=== PATIENT | male | born 1955 | race African-American/Black ===

== ENCOUNTER → 2016-02-09 | Outpatient (CLI) | payer MEDICARE, MEDICAID | LOC: RAD 09:39 | DX: D49.7 Neoplasm of unspecified behavior of endocrine glands and other parts of nervous system (principal) | CPT/HCPCS: 70553; A9577 ==

== ENCOUNTER → 2016-02-09 | Outpatient (CLI) | payer MEDICARE, MEDICAID ==
[2016-02-09 08:27] LABS: CHOLESTEROL 145.56 mg/dL (0-200); Direct HDL 37 mg/dL (>40); TRIGLYCERIDES 79 mg/dL (<150)
[2016-02-09 08:38] LABS: DIRECT LDL 84 mg/dL (<100)
== END ==
LOC: OD 07:24
DX: I10 Essential (primary) hypertension (principal); E78.5 Hyperlipidemia, unspecified; D49.7 Neoplasm of unspecified behavior of endocrine glands and other parts of nervous system; J44.9 Chronic obstructive pulmonary disease, unspecified; R35.8 Other polyuria
CPT/HCPCS: 36415; 80061

== ENCOUNTER → 2016-03-09 | Outpatient (CLI) | payer MEDICAID ==
[2016-03-09 11:00] LABS: APPEARANCE,URINE SLIGHTLY-CLOUDY; BILIRUBIN,URINE NEGATIVE (NEGATIVE); GLUCOSE, URINE NEGATIVE (NEGATIVE); KETONES,URINE NEGATIVE (NEGATIVE); LEUKOCYTE ESTERASE,URINE LARGE (NEGATIVE); NITRITE,URINE NEGATIVE (NEGATIVE); PROTEIN,URINE NEGATIVE (NEGATIVE); URINE SPECIFIC GRAVITY 1.011; UROBILINOGEN,URINE NEGATIVE mg/dL (<2.0)
[2016-03-09 12:20] LABS: FOLATE > 20.00 ng/mL (>2.76)
[2016-03-11 12:38] LABS: HGB A 56.7 % (94.0-98.0); HGB A2 3.9 % (0.7-3.1); HGB S 39.4 % (0.0); HGB SOLUBILITY RESULT Positive (Negative)
== END ==
LOC: OD 09:36
DX: Z13.0 Encounter for screening for diseases of the blood and blood-forming organs and certain disorders involving the immune mechanism (principal); Z13.228 Encounter for screening for other metabolic disorders; D49.7 Neoplasm of unspecified behavior of endocrine glands and other parts of nervous system; Z79.899 Other long term (current) drug therapy; G40.909 Epilepsy, unspecified, not intractable, without status epilepticus
CPT/HCPCS: 36415; 81001; 82607; 82728; 82746; 83020; 83036; 83540; 83550; 84153; 85045; 85652; 86038; 86592

== ENCOUNTER → 2016-03-15 | Outpatient (CLI) | payer MEDICARE, MEDICAID ==
--- NOTE | 2016-03-16 07:53 | EEG PRO FEE REPORT ---
EEG INTERPRETATION PATIENT NAME: LUIS PETERSON ROOM#: ORDER#: [id number] DATE OF STUDY: 03/15/16 : 1955 REFERRING MD: DR. CIFUENTES REPORT The background activity consists for the most part of 8-10 Hz alpha with a lot of superimposed motion artifact. No clear focal slowing, amplitude asymmetry, or epileptiform discharges are noted. IMPRESSION Normal EEG INTERPRETING PHYSICIAN: JOHNY CONTRERAS M.D. /: ADILENEUD TT: [id number] ID: [id number] /: [id number] TD: [id number] JOB: [id number] cc:JOHNY CONTRERAS M.D. >
== END ==
LOC: NEURO 12:39
DX: G40.909 Epilepsy, unspecified, not intractable, without status epilepticus (principal)
CPT/HCPCS: 95819

== ENCOUNTER → 2016-04-28 | Outpatient (CLI) | payer MEDICARE, MEDICAID ==
[2016-04-30 12:23] LABS: PROSTATE SPECIFIC ANTIGEN 4.6 ng/mL (0.0-4.0); PSA % FREE 7.4 % (.); PSA FREE 0.34 ng/mL
== END ==
LOC: OD 13:06
PROVIDERS: ATTEND Urology
DX: R97.20 Elevated prostate specific antigen [PSA] (principal); N40.1 Benign prostatic hyperplasia with lower urinary tract symptoms
CPT/HCPCS: 36415; 84154

== ENCOUNTER → 2016-07-29 | Outpatient (CLI) | payer MEDICARE, MEDICAID ==
[2016-07-29 10:16] LABS: ABSOLUTE EOSINOPHILS # (AUTO) 0.1 10^3/uL (0.0-0.6); ABSOLUTE LYMPHOCYTES (AUTO) 2.5 10^3/uL (0.5-4.7); ABSOLUTE MONOCYTES (AUTO) 0.5 10^3/uL (0.1-1.4); ABSOLUTE NEUT (AUTO) 3.1 10^3/uL (1.7-8.2); BASOPHILS % (AUTO) 0.7 % (0-2); EOSINOPHILS % (AUTO) 2.4 % (0-6); HEMATOCRIT 36.7 % (37.9-51.0); HGB HCT DIFFERENCE -0.7; LYMPHOCYTES % (AUTO) 39.9 % (13-45); MEAN CORPUSCULAR HEMOGLOBIN 29.4 pg (27.0-33.4); MEAN CORPUSCULAR HGB CONC 32.8 g/dL (32.0-36.0); MEAN CORPUSCULAR VOLUME 90 fl (80-97); MONOCYTES % (AUTO) 7.4 % (3-13); RED BLOOD COUNT 4.09 10^6/uL (4.35-5.55); RED CELL DISTRIBUTION WIDTH 14.3 % (11.5-14.0); SEGMENTED NEUTROPHILS % (AUTO) 49.6 % (42-78); WHITE BLOOD COUNT 6.3 10^3/uL (4.0-10.5)
[2016-07-29 10:33] LABS: ALANINE AMINOTRANSFERASE 25 U/L (21-72); ALBUMIN 4.3 g/dL (3.5-5.0); ALKALINE PHOSPHATASE 91 U/L (38-126); ANION GAP 10 (5-19); ASPARTATE AMINO TRANSFERASE 29 U/L (17-59); BILIRUBIN,DIRECT 0.3 mg/dL (0.0-0.4); BILIRUBIN,TOTAL 0.4 mg/dL (0.2-1.3); BLOOD UREA NITROGEN 17 mg/dL (7-20); CALCIUM 9.5 mg/dL (8.4-10.2); CARBON DIOXIDE 25 mmol/L (22-30); CHLORIDE 107 mmol/L (98-107); CHOLESTEROL 148.83 mg/dL (0-200); CREATININE RESULT 1.15 mg/dL (0.52-1.25); Direct HDL 46 mg/dL (>40); GLUCOSE 94 mg/dL (75-110); POTASSIUM 4.7 mmol/L (3.6-5.0); TOTAL PROTEIN 8.5 g/dL (6.3-8.2); TRIGLYCERIDES 54 mg/dL (<150)
[2016-07-29 10:43] LABS: DIRECT LDL 80 mg/dL (<100)
== END ==
LOC: OD 09:19
PROVIDERS: ATTEND Family Medicine Geriatric Medicine
DX: I10 Essential (primary) hypertension (principal); E78.5 Hyperlipidemia, unspecified; J44.9 Chronic obstructive pulmonary disease, unspecified; Z79.899 Other long term (current) drug therapy
CPT/HCPCS: 36415; 80053; 80061; 84443; 85025

== ENCOUNTER → 2016-09-22 | Outpatient (CLI) | payer MEDICARE, MEDICAID ==
[2016-09-23 08:11] LABS: PROLACTIN 4.6 ng/mL (4.0-15.2)
== END ==
LOC: OD 12:23
PROVIDERS: ATTEND Specialist
DX: D49.7 Neoplasm of unspecified behavior of endocrine glands and other parts of nervous system (principal)
CPT/HCPCS: 36415; 83003; 84146; 84436; 84443; 84480

== ENCOUNTER → 2016-10-27 | Outpatient (CLI) | payer MEDICARE, MEDICAID ==
[2016-10-28 09:14] LABS: PROSTATE SPECIFIC ANTIGEN 4.2 ng/mL (0.0-4.0); PSA % FREE 6.9 % (.); PSA FREE 0.29 ng/mL
== END ==
LOC: OD 08:23
PROVIDERS: ATTEND Urology
DX: R97.20 Elevated prostate specific antigen [PSA] (principal)
CPT/HCPCS: 36415; 84154

== ENCOUNTER → 2016-10-31 | Outpatient (CLI) | payer MEDICARE, MEDICAID ==
--- NOTE | 2016-10-31 11:14 | RADIOLOGY REPORT (SQ) ---
EXAM DESCRIPTION: C SP 4 OR 5 VIEWS COMPLETED DATE/TIME: 10/31/2016 9:02 am REASON FOR STUDY: CERVICALGIA M54.2 CERVICALGIA COMPARISON: None. NUMBER OF VIEWS: Five views. TECHNIQUE: AP, lateral, obliques and odontoid radiographic images acquired of the cervical spine. LIMITATIONS: None. FINDINGS: MINERALIZATION: Normal. ALIGNMENT: Straightening of cervical curvature. VERTEBRAE: No compression fracture. Bony sclerosis at C5 and C6 likely related to degenerative verte bral body endplate changes. Small to moderate sized anterior osteophytes from C3 through C6. DISCS: Disc space loss of height at C5-6 and C6-7 FORAMINA: Mild bilateral foraminal narrowing at C5-6 and C6-7 LATERAL AND POSTERIOR ELEMENTS: Facets, lateral masses and spinous processes without significant find ings. HARDWARE: None in the spine. SOFT TISSUES: No masses or calcifications. Lung apices clear. OTHER: No other significant finding. IMPRESSION: Degenerative disc changes and mild bilateral foraminal narrowing at C5-6 and C6-7 TECHNICAL DOCUMENTATION: JOB ID: [id number]- All Rights Reserved
== END ==
LOC: OD 08:45
PROVIDERS: ATTEND Family Medicine Geriatric Medicine
DX: M54.2 Cervicalgia (principal); M48.02 Spinal stenosis, cervical region
CPT/HCPCS: 72050

== ENCOUNTER → 2017-02-13 | Outpatient (CLI) | payer MEDICARE, MEDICAID ==
[2017-02-14 09:48] LABS: PROSTATE SPECIFIC ANTIGEN 5.5 ng/mL (0.0-4.0); PSA % FREE 6.5 % (.); PSA FREE 0.36 ng/mL
== END ==
LOC: OD 09:40
PROVIDERS: ATTEND Urology
DX: C61 Malignant neoplasm of prostate (principal)
CPT/HCPCS: 36415; 84154

== ENCOUNTER → 2017-05-15 | Outpatient (CLI) | payer MEDICARE, MEDICAID ==
[2017-05-15 12:46] LABS: ABSOLUTE EOSINOPHILS # (AUTO) 0.1 10^3/uL (0.0-0.6); ABSOLUTE LYMPHOCYTES (AUTO) 2.7 10^3/uL (0.5-4.7); ABSOLUTE MONOCYTES (AUTO) 0.3 10^3/uL (0.1-1.4); ABSOLUTE NEUT (AUTO) 2.4 10^3/uL (1.7-8.2); BASOPHILS % (AUTO) 0.6 % (0-2); EOSINOPHILS % (AUTO) 2.2 % (0-6); HEMATOCRIT 37.7 % (37.9-51.0); HEMOGLOBIN 12.9 g/dL (13.5-17.0); LYMPHOCYTES % (AUTO) 48.3 % (13-45); MEAN CORPUSCULAR HEMOGLOBIN 31.3 pg (27.0-33.4); MEAN CORPUSCULAR HGB CONC 34.1 g/dL (32.0-36.0); MEAN CORPUSCULAR VOLUME 92 fl (80-97); MONOCYTES % (AUTO) 5.7 % (3-13); PLATELET COUNT 210 10^3/uL (150-450); RED BLOOD COUNT 4.12 10^6/uL (4.35-5.55); RED CELL DISTRIBUTION WIDTH 14.8 % (11.5-14.0); SEGMENTED NEUTROPHILS % (AUTO) 43.2 % (42-78); TOTAL CELLS COUNTED % (AUTO) 100 %; WHITE BLOOD COUNT 5.6 10^3/uL (4.0-10.5)
[2017-05-15 13:09] LABS: ALANINE AMINOTRANSFERASE 28 U/L (21-72); ANION GAP 8 (5-19); ASPARTATE AMINO TRANSFERASE 35 U/L (17-59); BLOOD UREA NITROGEN 16 mg/dL (7-20); CALCIUM 9.7 mg/dL (8.4-10.2); CARBON DIOXIDE 29 mmol/L (22-30); CHLORIDE 107 mmol/L (98-107); CHOLESTEROL 152.61 mg/dL (0-200); GLUCOSE 92 mg/dL (75-110); POTASSIUM 4.9 mmol/L (3.6-5.0); SODIUM 144.2 mmol/L (137-145); TRIGLYCERIDES 162 mg/dL (<150)
[2017-05-15 13:20] LABS: DIRECT LDL 72 mg/dL (<100)
[2017-05-15 13:22] LABS: VLDL CHOLESTEROL 32.4 mg/dL (10-31)
[2017-05-16 09:07] LABS: PROSTATE SPECIFIC ANTIGEN 5.1 ng/mL (0.0-4.0); PSA % FREE 7.6 % (.); PSA FREE 0.39 ng/mL
== END ==
LOC: OD 11:32
PROVIDERS: ATTEND Otolaryngology
DX: C61 Malignant neoplasm of prostate (principal); E78.5 Hyperlipidemia, unspecified; J44.9 Chronic obstructive pulmonary disease, unspecified; I10 Essential (primary) hypertension; G40.909 Epilepsy, unspecified, not intractable, without status epilepticus; Z29.9 Encounter for prophylactic measures, unspecified; Z79.899 Other long term (current) drug therapy
CPT/HCPCS: 36415; 80048; 80061; 82785; 84154; 84450; 84460; 85025; 86003

== ENCOUNTER → 2017-08-24 | Outpatient (CLI) | payer MEDICARE, MEDICAID | LOC: OD 10:14 | PROVIDERS: ATTEND Urology | DX: C61 Malignant neoplasm of prostate (principal) | CPT/HCPCS: 36415; 84153 ==

== ENCOUNTER 2018-03-24 09:42 | Inpatient (IN) | payer MEDICARE, MEDICAID ==
[2018-03-24] MEDS ORDERED: ONDANSETRON HCL INJ/PF 4 MG/2 ML SDV IV ONE (10:08)
[2018-03-24] MEDS ORDERED: MORPHINE SULFATE 10 MG/ML INJ IV ONE (10:09)
[2018-03-24] MEDS ORDERED: GABAPENTIN 300 MG CAPSULE PO ONE (10:10)
--- NOTE | 2018-03-24 10:11 | ER Document Report ---
ED Medical Screen (RME) - General Chief Complaint: Headache Stated Complaint: HEADACHE Time Seen by Provider: 03/24/18 10:07 Primary Care Provider: JOSE L HOYT MD [Primary Care Provider] - Follow up as needed Mode of Arrival: Medic Information source: Patient Notes: This is a 62-year-old man with a history of a pituitary mass (diagnosed in 2011, refused surgery at that time) who presents to the emergency room with a 5-day history of headache, weakness. Patient denies any fever, chills, nausea or vomiting. TRAVEL OUTSIDE OF THE [place] IN LAST 30 DAYS: No - Related Data Allergies/Adverse Reactions: No Known Allergies Allergy (Verified 03/24/18 09:43) Past Medical History - Past Medical History Cardiac Medical History: Reports: Hx Hypertension Neurological Medical History: Reports: Hx Migraine Renal/ Medical History: Denies: Hx Peritoneal Dialysis - Immunizations Hx Diphtheria, Pertussis, Tetanus Vaccination: No Physical Exam - Vital signs Vitals: Temp Pulse Resp BP Pulse Ox 97.8 F 70 16 102/56 L 95 03/24/18 09:51 03/24/18 09:51 03/24/18 09:51 03/24/18 09:51 03/24/18 09:51 Course - Vital Signs Vital signs: Temp Pulse Resp BP Pulse Ox 97.8 F 70 16 102/56 L 95 03/24/18 09:51 03/24/18 09:51 03/24/18 09:51 03/24/18 09:51 03/24/18 09:51 Doctor's Discharge - Discharge Referrals: JOSE L HOYT MD [Primary Care Provider] - Follow up as needed
[2018-03-24 10:40] LABS: ABSOLUTE EOSINOPHILS # (AUTO) 0.1 10^3/uL (0.0-0.6); ABSOLUTE LYMPHOCYTES (AUTO) 2.5 10^3/uL (0.5-4.7); ABSOLUTE MONOCYTES (AUTO) 0.7 10^3/uL (0.1-1.4); BASOPHILS % (AUTO) 0.6 % (0-2); EOSINOPHILS % (AUTO) 0.7 % (0-6); HEMATOCRIT 43.2 % (37.9-51.0); HEMOGLOBIN 14.6 g/dL (13.5-17.0); LYMPHOCYTES % (AUTO) 33.9 % (13-45); MEAN CORPUSCULAR HEMOGLOBIN 30.5 pg (27.0-33.4); MEAN CORPUSCULAR HGB CONC 33.8 g/dL (32.0-36.0); MEAN CORPUSCULAR VOLUME 90 fl (80-97); MONOCYTES % (AUTO) 10.1 % (3-13); PLATELET COUNT 176 10^3/uL (150-450); RED BLOOD COUNT 4.79 10^6/uL (4.35-5.55); RED CELL DISTRIBUTION WIDTH 14.1 % (11.5-14.0); SEGMENTED NEUTROPHILS % (AUTO) 54.7 % (42-78); TOTAL CELLS COUNTED % (AUTO) 100 %; WHITE BLOOD COUNT 7.2 10^3/uL (4.0-10.5)
[2018-03-24 10:48] LABS: PROTHROMBIN TIME 13.7 SEC (11.4-15.4)
[2018-03-24 11:00] LABS: ALANINE AMINOTRANSFERASE 29 U/L (21-72); ALBUMIN 4.9 g/dL (3.5-5.0); ALKALINE PHOSPHATASE 86 U/L (38-126); ANION GAP 18 (5-19); ASPARTATE AMINO TRANSFERASE 65 U/L (17-59); BILIRUBIN,DIRECT 0.3 mg/dL (0.0-0.4); BILIRUBIN,TOTAL 0.5 mg/dL (0.2-1.3); BLOOD UREA NITROGEN 69 mg/dL (7-20); CALCIUM 8.7 mg/dL (8.4-10.2); CARBON DIOXIDE 22 mmol/L (22-30); CHLORIDE 97 mmol/L (98-107); GLUCOSE 121 mg/dL (75-110); POTASSIUM 4.3 mmol/L (3.6-5.0); SODIUM 137.2 mmol/L (137-145); TOTAL PROTEIN 9.3 g/dL (6.3-8.2)
--- NOTE | 2018-03-24 11:06 | RADIOLOGY REPORT (SQ) ---
EXAM DESCRIPTION: CT HEAD WITHOUT COMPLETED DATE/TIME: 03/24/2018 10:46 am REASON FOR STUDY: castellon, h/o pituitary mass COMPARISON: CT brain 08/02/2011 MRI brain 02/09/2016 TECHNIQUE: Axial images acquired through the brain without intravenous contrast. Images reviewed wi th bone, brain and subdural windows. Additional sagittal and coronal reconstructions were generated. Images stored on PACS. All CT scanners at this facility use dose modulation, iterative reconstruction, and/or weight based d osing when appropriate to reduce radiation dose to as low as reasonably achievable (ALARA). [facility]: Dose Right [facility]: CareDose [facility]: Dose Right [facility]: Teradose 4D [facility]: [employer] RADIATION DOSE: CT Rad equipment meets quality standard of care and radiation dose reduction techniq ues were employed. CTDIvol: 53.2 mGy. DLP: 1017 mGy-cm. mGy. LIMITATIONS: None. FINDINGS: Chronic sphenoid sinusitis on the right, with mucoperiosteal thickening dried secretions i n the right sphenoid sinus. This is unchanged from CT in 2011 and brain MRI 2016. Sella and pituita ry are unremarkable on sagittal reconstruction images -. VENTRICLES: Normal size and contour. CEREBRUM: No masses. No hemorrhage. No midline shift. No evidence for acute infarction. Normal gra y/white matter differentiation. No areas of low density in the white matter. CEREBELLUM: No masses. No hemorrhage. No alteration of density. No evidence for acute infarction. EXTRAAXIAL SPACES: No fluid collections. No masses. ORBITS AND GLOBE: No intra- or extraconal masses. Normal contour of globe without masses. CALVARIUM: No fracture. PARANASAL SINUSES: Chronic sphenoid sinusitis on the right with mucoperiosteal thickening and dried s ecretions. SOFT TISSUES: No mass or hematoma. OTHER: No other significant finding. IMPRESSION: Chronic sphenoid sinusitis on the right with mucoperiosteal thickening and dried secreti ons. Otherwise unremarkable CT brain EVIDENCE OF ACUTE STROKE: NO. COMMENT: Quality ID # [id number]: Final reports with documentation of one or more dose reduction techniques (e.g., Automated exposure control, adjustment of the mA and/or kV according to patient size, use of iterative reconstruction technique) TECHNICAL DOCUMENTATION: JOB ID: [id number] [employer]- All Rights Reserved Reading location - IP/workstation name: [email or web address]
[2018-03-24] MEDS ORDERED: NORMAL SALINE 1000 ML 1,000 ML IV ONE (11:18)
[2018-03-24] MEDS ORDERED: NORMAL SALINE 500 ML IV ONE (11:18)
[2018-03-24] MEDS ORDERED: IPRATROPIUM/ALBUTEROL 0.5-2.5 MG/3 ML AMPUL NEB ONE (12:12)
--- NOTE | 2018-03-24 13:32 | RADIOLOGY REPORT (SQ) ---
EXAM DESCRIPTION: CT ABD/PELVIS NO ORAL OR IV COMPLETED DATE/TIME: 03/24/2018 1:16 pm REASON FOR STUDY: ARF n/v/d . Bilateral lower quadrants pain. COMPARISON: None. TECHNIQUE: CT scan of the abdomen and pelvis performed without intravenous or oral contrast. Images reviewed with lung, soft tissue, and bone windows. Reconstructed coronal and sagittal MPR images revi ewed. All images stored on PACS. All CT scanners at this facility use dose modulation, iterative reconstruction, and/or weight based d osing when appropriate to reduce radiation dose to as low as reasonably achievable (ALARA). [facility]: Dose Right [facility]: CareDose [facility]: Dose Right [facility]: Teradose 4D [facility]: [employer] RADIATION DOSE: CT Rad equipment meets quality standard of care and radiation dose reduction techniq ues were employed. CTDIvol: 5.3 mGy. DLP: 284 mGy-cm.mGy. LIMITATIONS: None. FINDINGS: Stone CT LOWER CHEST: No consolidation or pleural effusion. NON-CONTRASTED LIVER, SPLEEN, ADRENALS: Evaluation limited by lack of IV contrast. No identified sign ificant masses. PANCREAS: No peripancreatic inflammatory changes. GALLBLADDER: Present. RIGHT KIDNEY AND URETER: Assessment for masses limited by lack of IV contrast. No significant calci fications. No hydronephrosis or hydroureter. LEFT KIDNEY AND URETER: Assessment for masses limited by lack of IV contrast. No significant calcif ications. No hydronephrosis or hydroureter. AORTA AND RETROPERITONEUM: No abdominal aortic aneurysm. No retroperitoneal masses or hemorrhage. BOWEL AND PERITONEAL CAVITY: No dilated bowel loops or inflammatory changes. No free fluid. APPENDIX: Normal. PELVIS, BLADDER, AND ABDOMINAL WALL:No pelvic mass. No free fluid. Bladder partially distended. BONES: Multilevel degenerative changes at the spine. IMPRESSION: No acute findings in the abdomen or pelvis on unenhanced CT. COMMENT: Quality ID # [id number]: Final reports with documentation of one or more dose reduction techniques (e.g., Automated exposure control, adjustment of the mA and/or kV according to patient size, use of iterative reconstruction technique) TECHNICAL DOCUMENTATION: JOB ID: [id number] 2010 [employer]- All Rights Reserved Reading location - IP/workstation name: [email or web address]
--- NOTE | 2018-03-24 13:56 | ER Document Report ---
ED General - General Chief Complaint: Headache Stated Complaint: HEADACHE Time Seen by Provider: 03/24/18 10:07 Mode of Arrival: Medic TRAVEL OUTSIDE OF THE [place] IN LAST 30 DAYS: No - HPI Patient complains to provider of: Headache nausea vomiting diarrhea Notes: Patient was seen by our doctor in triage notes provided below This is a 62-year-old man with a history of a pituitary mass (diagnosed in 2011, refused surgery at that time) who presents to the emergency room with a 5-day history of headache, weakness. Patient denies any fever, chills, nausea or vomiting. Patient records were reviewed showing MRI in 2017 showing no brain mass. Patient states he understands that he had his MRI is confused about the initial diagnosis of a pituitary tumor. Patient otherwise states that he has been having trouble walking and having multiple episodes of nausea vomiting diarrhea patient states intermittent compliance with medications which includes hyp ertension hyperlipidemia medications along with prostate medications for hypertrophy. Patient states he is urinating fine denies any recent antibiotics denies any recent travel. Resting comfortably upon my evaluation - Related Data Allergies/Adverse Reactions: No Known Allergies Allergy (Verified 03/24/18 09:43) Past Medical History - General Information source: Patient - Social History Smoking Status: Current Some Day Smoker Family History: Hypertension, Other Patient has suicidal ideation: No Patient has homicidal ideation: No - Past Medical History Cardiac Medical History: Reports: Hx Hypertension Neurological Medical History: Reports: Hx Migraine Renal/ Medical History: Denies: Hx Peritoneal Dialysis - Immunizations Hx Diphtheria, Pertussis, Tetanus Vaccination: No Review of Systems - Review of Systems Constitutional: No symptoms reported EENT: No symptoms reported Cardiovascular: No symptoms reported Respiratory: No symptoms reported Gastrointestinal: Diarrhea, Nausea, Vomiting Genitourinary: No symptoms reported Male Genitourinary: No symptoms reported Musculoskeletal: No symptoms reported Skin: No symptoms reported Hematologic/Lymphatic: No symptoms reported Neurological/Psychological: No symptoms reported, Headaches -: Yes All other systems reviewed and negative Physical Exam - Vital signs Vitals: Temp Pulse Resp BP Pulse Ox 97.8 F 70 16 102/56 L 95 03/24/18 09:51 03/24/18 09:51 03/24/18 09:51 03/24/18 09:51 03/24/18 09:51 Interpretation: Hypotensive - General General appearance: Appears well, Alert - HEENT Head: Normocephalic, Atraumatic Eyes: Normal Pupils: PERRL - Respiratory Respiratory status: No respiratory distress Chest status: Nontender Breath sounds: Normal Chest palpation: Normal - Cardiovascular Rhythm: Regular Heart sounds: Normal auscultation Murmur: No - Abdominal Inspection: Normal Distension: No distension Bowel sounds: Normal Tenderness: Nontender Organomegaly: No organomegaly - Back Back: Normal, Nontender - Extremities General upper extremity: Normal inspection, Nontender, Normal color, Normal ROM, Normal temperature General lower extremity: Normal inspection, Nontender, Normal color, Normal ROM, Normal temperature, Normal weight bearing. No: Irina's sign - Neurological Neuro grossly intact: Yes Cognition: Normal Orientation: AAOx4 [place] Coma Scale Eye Opening: Spontaneous [place] Coma Scale Verbal: Oriented [place] Coma Scale Motor: Obeys Commands [place] Coma Scale Total: 15 Speech: Normal Motor strength normal: LUE, RUE, LLE, RLE Sensory: Normal - Psychological Associated symptoms: Normal affect, Normal mood - Skin Skin Temperature: Warm Skin Moisture: Dry Skin Color: Normal Course - Re-evaluation Re-evalutation: 03/24/18 15:19 Laboratory studies showed acute renal failure with a creatinine of a BUN close to 70. Possibly due to dehydration CT scan was performed looking for any signs of obstruction or hydronephrosis which was otherwise negative. Patient still aw aiting give us a urine sample. IV hydration was given to the patient. Patient head CT shows chronic findings. Patient otherwise resting comfortably will admit to the hospital staff for underlying acute renal failure - Vital Signs Vital signs: Temp Pulse Resp BP Pulse Ox 97.5 F 70 9 L 86/61 L 96 03/24/18 12:42 03/24/18 09:51 03/24/18 14:05 03/24/18 14:05 03/24/18 14:05 - Laboratory Result Diagrams: 03/24/18 10:28 03/24/18 10:28 Laboratory results interpreted by me: 03/24/18 03/24/18 03/24/18 10:28 10:28 14:05 RDW 14.1 H Chloride 97 L BUN 69 H Creatinine 8.61 H Est GFR ( Amer) 8 L Est GFR (Non-Af Amer) 6 L Glucose 121 H AST 65 H Creatine Kinase Total Protein 9.3 H Urine Protein 100 H Urine Blood MODERATE H Ur Leukocyte Esterase LARGE H 02/16/19 14:22 RDW Chloride BUN Creatinine Est GFR ( Amer) Est GFR (Non-Af Amer) Glucose AST Creatine Kinase 326 H Total Protein Urine Protein Urine Blood Ur Leukocyte Esterase Discharge - Discharge Clinical Impression: Nausea vomiting and diarrhea Acute renal failure Qualifiers: Acute renal failure type: unspecified Qualified Code(s): N17.9 - Acute kidney failure, unspecified Condition: Good Disposition: ADMITTED OBSERVATION Admitting Provider: Ar[facility] - [facility] Admitted: Telemetry
[2018-03-24 14:29] LABS: APPEARANCE,URINE CLOUDY; BILIRUBIN,URINE NEGATIVE (NEGATIVE); COLOR,URINE YELLOW; GLUCOSE, URINE NEGATIVE (NEGATIVE); KETONES,URINE NEGATIVE (NEGATIVE); LEUKOCYTE ESTERASE,URINE LARGE (NEGATIVE); NITRITE,URINE NEGATIVE (NEGATIVE); PROTEIN,URINE 100 mg/dL (NEGATIVE); URINE SPECIFIC GRAVITY 1.013; UROBILINOGEN,URINE NEGATIVE mg/dL (<2.0)
[2018-03-24] MEDS ORDERED: NORMAL SALINE 1000 ML 1,500 ML IV ONE (14:35)
[2018-03-24] MEDS ORDERED: ONDANSETRON HCL INJ/PF 4 MG/2 ML SDV IV PRN (14:36)
--- NOTE | 2018-03-24 14:51 | PDOC H&P ---
History of Present Illness Admission Date/PCP: MARCUS CLARK MD Patient complains of: vomiting, diarrhea History of Present Illness: LUIS PETERSON is a 62 year old male with a PMH of hypertension, BPH, seizure disorder (related to pituitary tumor), and history of pituitary tumor (diagnosed in 2011-undetectable on last MRI in 2016) who presented with vomiting and diarrhea and respiratory symptoms. He says he started developing nonproductive cough and congestion 4 days ago. This was later associated with 2-3 episodes of nonbloody, watery stools and few episodes on nonbilious, nonbloody vomiting. He says his last BM and vomiting was yesterday. He says he has been having poor appetite and has not been eating or drinking enough at home. Denies fever, chills, chest pain or SOB. He was noted to be dehydrated and BP in the 70/50s. Past Medical History Cardiac Medical History: Reports: Hypertension Neurological Medical History: Reports: Migraine Social History Smoking Status: Current Some Day Smoker Family History Family History: Hypertension, Other Parental Family History Reviewed: Yes - no premature CAD Children Family History Reviewed: No Sibling(s) Family History Reviewed.: No Medication/Allergy Allergies/Adverse Reactions: No Known Allergies Allergy (Verified 03/24/18 09:43) Review of Systems All systems: reviewed and no additional remarkable complaints except as stated - as mentioned in HPI Physical Exam Vital Signs: Temp Pulse Resp BP Pulse Ox 97.5 F 70 9 L 86/61 L 96 03/24/18 12:42 03/24/18 09:51 03/24/18 14:05 03/24/18 14:05 03/24/18 14:05 Intake & Output 03/23/18 03/24/18 03/25/18 06:59 06:59 06:59 Intake Total 500 Balance 500 Weight 156 lb 11.979 oz General appearance: PRESENT: no acute distress, well-developed, well-nourished Head exam: PRESENT: atraumatic, normocephalic Eye exam: PRESENT: conjunctiva pink, EOMI, PERRLA. ABSENT: scleral icterus Ear exam: PRESENT: normal external ear exam Neck exam: ABSENT: carotid bruit, JVD, lymphadenopathy, thyromegaly Respiratory exam: PRESENT: clear to auscultation carley. ABSENT: rales, rhonchi, wheezes Cardiovascular exam: PRESENT: RRR. ABSENT: diastolic murmur, rubs, systolic murmur Pulses: PRESENT: normal dorsalis pedis pul GI/Abdominal exam: PRESENT: normal bowel sounds, soft. ABSENT: distended, guarding, mass, organolmegaly, rebound, tenderness Rectal exam: PRESENT: deferred Neurological exam: PRESENT: alert, awake, oriented to person, oriented to place, oriented to time, oriented to situation, CN II-XII grossly intact. ABSENT: motor sensory deficit Skin exam: PRESENT: other - dry Results Laboratory Results: 03/24/18 10:28 03/24/18 10:28 03/24/18 03/24/18 03/24/18 10:28 10: 14:05 WBC 7.2 RBC 4.79 Hgb 14.6 Hct 43.2 MCV 90 MCH 30.5 MCHC 33.8 RDW 14.1 H Plt Count 176 Seg Neutrophils % 54.7 Lymphocytes % 33.9 Monocytes % 10.1 Eosinophils % 0.7 Basophils % 0.6 Absolute Neutrophils 4.0 Absolute Lymphocytes 2.5 Absolute Monocytes 0.7 Absolute Eosinophils 0.1 Absolute Basophils 0.0 Sodium 137.2 Potassium 4.3 Chloride 97 L Carbon Dioxide 22 Anion Gap 18 BUN 69 H Creatinine 8.61 H Est GFR ( Amer) 8 L Est GFR (Non-Af Amer) 6 L Glucose 121 H Calcium 8.7 Total Bilirubin 0.5 AST 65 H ALT 29 Alkaline Phosphatase 86 Total Protein 9.3 H Albumin 4.9 Urine Color YELLOW Urine Appearance CLOUDY Urine pH 5.0 Ur Specific [place] 1.013 Urine Protein 100 H Urine Glucose (UA) NEGATIVE Urine Ketones NEGATIVE Urine Blood MODERATE H Urine Nitrite NEGATIVE Ur Leukocyte Esterase LARGE H Urine WBC (Auto) 57 Urine RBC (Auto) 7 Impressions: Head CT 03/24/18 10:10 IMPRESSION: Chronic sphenoid sinusitis on the right with mucoperiosteal thickening and dried secretions. Otherwise unremarkable CT brain EVIDENCE OF ACUTE STROKE: NO. Abdomen/Pelvis CT 03/24/18 12:39 IMPRESSION: No acute findings in the abdomen or pelvis on unenhanced CT. Assessment & Plan - Diagnosis (1) Acute renal failure Qualifiers: Acute renal failure type: unspecified Qualified Code(s): N17.9 - Acute kidney failure, unspecified Is this a current diagnosis for this admission?: Yes Plan: Creatinine is 8. He has a normal previous baseline Cr. CT of the abdomen/pelvis is negative for obstruction. Likely combination of prerenal from GI losses and ATN from low blood pressures. Will mastic sprayer 2L of bolus then switch to 150 cc/hr. Repeat BMP later today. (2) Hypotension Is this a current diagnosis for this admission?: Yes Plan: Likely from volume depletion from severe dehydration. IV fluids as mentioned. (3) Nausea vomiting and diarrhea Is this a current diagnosis for this admission?: Yes Plan: Likely from acute gastroenteritis. Zofran prn. Last BM and vomiting was yesterday. (4) Hypertension Is this a current diagnosis for this admission?: Yes Plan: Hold lisinopril for now. (5) Seizure disorder Is this a current diagnosis for this admission?: Yes Plan: Resume [place]. - Time Time Spent: 30 to 50 Minutes
[2018-03-24 17:51] LABS: A TYPE INFLUENZA AG NEGATIVE (NEGATIVE); B INFLUENZA AG NEGATIVE (NEGATIVE)
[2018-03-24 18:22] LABS: ANION GAP 12 (5-19); BLOOD UREA NITROGEN 67 mg/dL (7-20); CALCIUM 7.6 mg/dL (8.4-10.2); CARBON DIOXIDE 23 mmol/L (22-30); CHLORIDE 102 mmol/L (98-107); GLUCOSE 112 mg/dL (75-110); POTASSIUM 4.2 mmol/L (3.6-5.0)
--- NOTE | 2018-03-24 19:42 | EKG REPORT ---
SEVERITY:- ABNORMAL ECG - SINUS RHYTHM RIGHT BUNDLE BRANCH BLOCK : Confirmed by: Delmis Ward MD 24-Mar-2018 19:41:50
[2018-03-25 00:28] LABS: ANION GAP 9 (5-19); BLOOD UREA NITROGEN 59 mg/dL (7-20); CALCIUM 7.7 mg/dL (8.4-10.2); CARBON DIOXIDE 22 mmol/L (22-30); CHLORIDE 110 mmol/L (98-107); GLUCOSE 108 mg/dL (75-110); POTASSIUM 4.4 mmol/L (3.6-5.0); SODIUM 140.5 mmol/L (137-145)
[2018-03-25] MEDS: NORMAL SALINE 1000 ML 1,000 ML IV PRN ×2 (07:25→14:41)
[2018-03-25] MEDS ORDERED: FONDAPARINUX SODIUM INJ 2.5 MG/0.5 ML DISP.SYRIN SUBCUT SCH (08:00)
[2018-03-25] MEDS ORDERED: TRAMADOL HCL 50 MG TABLET PO PRN (10:30)
[2018-03-25] MEDS: FONDAPARINUX SODIUM INJ 2.5 MG/0.5 ML DISP.SYRIN SUBCUT SCH (10:57)
[2018-03-25] MEDS: PREDNISONE 20 MG TABLET PO SCH ×2 (12:12→18:08)
[2018-03-25] MEDS: IPRATROPIUM/ALBUTEROL 0.5-2.5 MG/3 ML AMPUL NEB SCH ×3 (12:12→19:51)
--- NOTE | 2018-03-25 12:53 | RADIOLOGY REPORT (SQ) ---
EXAM DESCRIPTION: CHEST SINGLE VIEW COMPLETED DATE/TIME: 03/25/2018 12:22 pm REASON FOR STUDY: rhonchi bilaterally COMPARISON: Two-view chest 02/03/2016 EXAM PARAMETERS: NUMBER OF VIEWS: One view. TECHNIQUE: Single frontal radiographic view of the chest acquired. RADIATION DOSE: NA LIMITATIONS: None. FINDINGS: LUNGS AND PLEURA: No opacities, masses or pneumothorax. No pleural effusion. MEDIASTINUM AND HILAR STRUCTURES: No masses. Contour normal. HEART AND VASCULAR STRUCTURES: Heart normal in size. Normal vasculature. BONES: No acute findings. HARDWARE: None in the chest. OTHER: No other significant finding. IMPRESSION: NO ACUTE RADIOGRAPHIC FINDING IN THE CHEST. TECHNICAL DOCUMENTATION: JOB ID: [id number] [employer]- All Rights Reserved Reading location - IP/workstation name: [email or web address]
--- NOTE | 2018-03-25 13:07 | EKG REPORT ---
SEVERITY:- ABNORMAL ECG - SINUS RHYTHM MULTIPLE VENTRICULAR PREMATURE COMPLEXES RIGHT BUNDLE BRANCH BLOCK : Confirmed by: Delmis Ward MD 25-Mar-2018 13:07:02
--- NOTE | 2018-03-25 13:49 | PDOC PROGRESS REPORT ---
Subjective Progress Note for:: 03/25/18 Subjective:: LUIS PETERSON is a 62 year old male with a PMH of hypertension, BPH, seizure disorder (related to pituitary tumor), and history of pituitary tumor (diagnosed in 2011-undetectable on last MRI in 2016) who presented with vomiting and diarrhea and respiratory symptoms. He says he started developing nonproductive cough and congestion 4 days ago. This was later associated with 2-3 episodes of nonbloody, watery stools and few episodes on nonbilious, nonbloody vomiting. He says his last BM and vomiting was yesterday. He says he has been having poor appetite and has not been eating or drinking enough at home. Denies fever, chills, chest pain or SOB. He was noted to be dehydrated and BP in the 70/50s. 03/25: No acute event overnight. Tele monitoring did show he had runs of trigeminy. He denies chest pain or SOB. He says he feels much better today. No recurrence of vomiting or diarrhea. His renal functions have significantly improved overnight with IV fluids. He does have bilateral wheezes this morning and says he forgot to tell us he has COPD and is on 3 types of inhalers at home. Reason For Visit: ACUTE RENAL FAILURE Physical Exam Vital Signs: Temp Pulse Resp BP Pulse Ox 98.5 F 49 L 16 121/53 L 100 03/25/18 12:00 03/25/18 12:16 03/25/18 12:16 03/25/18 12:00 03/25/18 12:16 Intake & Output 03/24/18 03/25/18 03/26/18 06:59 06:59 06:59 Intake Total 3370 Output Total 2800 Balance 570 Weight 156 lb 4.924 oz General appearance: PRESENT: no acute distress, well-developed, well-nourished Head exam: PRESENT: atraumatic, normocephalic Eye exam: PRESENT: conjunctiva pink, EOMI, PERRLA. ABSENT: scleral icterus Ear exam: PRESENT: normal external ear exam Mouth exam: PRESENT: moist, tongue midline Neck exam: ABSENT: carotid bruit, JVD, lymphadenopathy, thyromegaly Respiratory exam: PRESENT: rhonchi, wheezes. ABSENT: rales Cardiovascular exam: PRESENT: RRR. ABSENT: diastolic murmur, rubs, systolic murmur Pulses: PRESENT: normal dorsalis pedis pul GI/Abdominal exam: PRESENT: normal bowel sounds, soft. ABSENT: distended, guarding, mass, organolmegaly, rebound, tenderness Rectal exam: PRESENT: deferred Neurological exam: PRESENT: alert, awake, oriented to person, oriented to place, oriented to time, oriented to situation, CN II-XII grossly intact. ABSENT: motor sensory deficit Skin exam: PRESENT: dry Results Laboratory Results: 03/24/18 10:28 03/25/18 00:03 03/24/18 03/24/18 03/25/18 14:05 17:49 00:03 Sodium 137.0 140.5 Potassium 4.2 4.4 Chloride 102 110 H Carbon Dioxide 23 22 Anion Gap 12 9 BUN 67 H 59 H Creatinine 6.17 H 4.36 H Est GFR ( Amer) 11 L 17 L Est GFR (Non-Af Amer) 9 L 14 L Glucose 112 H 108 Calcium 7.6 L 7.7 L Magnesium 2.6 H Urine Color YELLOW Urine Appearance CLOUDY Urine pH 5.0 Ur Specific [place] 1.013 Urine Protein 100 H Urine Glucose (UA) NEGATIVE Urine Ketones NEGATIVE Urine Blood MODERATE H Urine Nitrite NEGATIVE Ur Leukocyte Esterase LARGE H Urine WBC (Auto) 57 Urine RBC (Auto) 7 03/24/18 14:22 Creatine Kinase 326 H Impressions: Head CT 03/24/18 10:10 IMPRESSION: Chronic sphenoid sinusitis on the right with mucoperiosteal thickening and dried secretions. Otherwise unremarkable CT brain EVIDENCE OF ACUTE STROKE: NO. Abdomen/Pelvis CT 03/24/18 12:39 IMPRESSION: No acute findings in the abdomen or pelvis on unenhanced CT. Chest X-Ray 03/25/18 10:47 IMPRESSION: NO ACUTE RADIOGRAPHIC FINDING IN THE CHEST. Assessment & Plan - Diagnosis (1) Acute renal failure Qualifiers: Acute renal failure type: unspecified Qualified Code(s): N17.9 - Acute kidney failure, unspecified Is this a current diagnosis for this admission?: Yes Plan: Creatinine is 8. He has a normal previous baseline Cr. CT of the abdomen/pelvis is negative for obstruction. Likely combination of prerenal from GI losses and ATN from low blood pressures. Will weekend caregiver 2L of bolus then switch to 150 cc/hr. 03/25: BUN and creatinine have significantly improved with IV fluids overnight. Continue IV hydration today. (2) Hypotension Is this a current diagnosis for this admission?: Yes Plan: Resolved. Likely from volume depletion from severe dehydration. IV fluids as mentioned. (3) Nausea vomiting and diarrhea Is this a current diagnosis for this admission?: Yes Plan: Likely from acute gastroenteritis. Zofran prn. Last BM and vomiting was on 03/23. (4) Hypertension Is this a current diagnosis for this admission?: Yes Plan: Hold lisinopril for now. (5) Seizure disorder Is this a current diagnosis for this admission?: Yes Plan: Resume Keppra. (6) COPD (chronic obstructive pulmonary disease) Is this a current diagnosis for this admission?: Yes Plan: Mild COPD exacerbation. He has bilateral wheezing upon encounter today. He appears to have mild COPD exacerbation. Will start him on PO steroids and breathing treatments as well. - Time Time Spent with patient: 25-34 minutes
[2018-03-25 16:18] LABS: ANION GAP 6 (5-19); BLOOD UREA NITROGEN 41 mg/dL (7-20); CALCIUM 8.1 mg/dL (8.4-10.2); CARBON DIOXIDE 24 mmol/L (22-30); CHLORIDE 114 mmol/L (98-107); GLUCOSE 115 mg/dL (75-110)
[2018-03-25] MEDS ORDERED: ATORVASTATIN CALCIUM 40 MG TABLET PO SCH (18:00)
[2018-03-25] MEDS: LEVETIRACETAM 500 MG TABLET PO SCH (21:30)
[2018-03-26] MEDS: IPRATROPIUM/ALBUTEROL 0.5-2.5 MG/3 ML AMPUL NEB SCH ×4 (00:32→12:16)
[2018-03-26 05:24] LABS: ANION GAP 10 (5-19); BLOOD UREA NITROGEN 25 mg/dL (7-20); CALCIUM 8.1 mg/dL (8.4-10.2); CARBON DIOXIDE 18 mmol/L (22-30); CHLORIDE 117 mmol/L (98-107); GLUCOSE 151 mg/dL (75-110); POTASSIUM 5.1 mmol/L (3.6-5.0); SODIUM 145.1 mmol/L (137-145)
[2018-03-26] MEDS: LEVETIRACETAM 500 MG TABLET PO SCH (09:30)
[2018-03-26] MEDS: FONDAPARINUX SODIUM INJ 2.5 MG/0.5 ML DISP.SYRIN SUBCUT SCH (09:31)
[2018-03-26] MEDS: PREDNISONE 20 MG TABLET PO SCH (09:31)
[2018-03-26] MEDS ORDERED: TAMSULOSIN HCL 0.4 MG CAP.SR.24H PO SCH (10:00)
[2018-03-26 12:11] VITALS: BP 148/77
--- NOTE | 2018-03-26 18:55 | PDOC DISCHARGE SUMMARY ---
General - Admit/Disc Date/PCP Admission Date/Primary Care Provider: 03/24/18 14:57 MARCUS CLARK MD Discharge Date: 03/26/18 - Discharge Diagnosis (1) Acute renal failure Is this a current diagnosis for this admission?: Yes (2) Hypotension Is this a current diagnosis for this admission?: Yes (3) Nausea vomiting and diarrhea Is this a current diagnosis for this admission?: Yes (4) Hypertension Is this a current diagnosis for this admission?: Yes (5) Seizure disorder Is this a current diagnosis for this admission?: Yes (6) COPD (chronic obstructive pulmonary disease) Is this a current diagnosis for this admission?: Yes - Additional Information Discharge Diet: As Tolerated Discharge Activity: Activity As Tolerated Prescriptions: Carvedilol [Coreg 12.5 mg Tablet] 12.5 mg PO Q12 #60 tablet Fluticasone/Salmeterol [Advair HFA 115-21 mcg Inhaler] 1 puff IH Q12 #1 mdi Prednisone [Deltasone 20 mg Tablet] 20 mg PO BID 4 Days #8 tablet Home Medications: Atorvastatin Calcium [Lipitor 40 mg Tablet] 40 mg PO QPM 03/24/18 Levetiracetam [Keppra] 750 mg PO BID 03/24/18 Tamsulosin HCl [Flomax 0.4 mg Cap.sr] 0.4 mg PO DAILY 03/24/18 Tramadol HCl [Ultram 50 mg Tablet] 50 mg PO Q6HP PRN 03/24/18 Carvedilol [Coreg 12.5 mg Tablet] 12.5 mg PO Q12 #60 tablet 03/26/18 Fluticasone/Salmeterol [Advair HFA 115-21 mcg Inhaler] 1 puff IH Q12 #1 mdi 03/26/18 Prednisone [Deltasone 20 mg Tablet] 20 mg PO BID 4 Days #8 tablet 03/26/18 History of Present Illness History of Present Illness: LUIS PETERSON is a 62 year old male with a PMH of hypertension, BPH, seizure disorder (related to pituitary tumor), and history of pituitary tumor (diagnosed in 2011-undetectable on last MRI in 2016) who presented with vomiting and diarrhea and respiratory symptoms. He says he started developing nonproductive cough and congestion 4 days ago. This was later associated with 2-3 episodes of nonbloody, watery stools and few episodes on nonbilious, nonbloody vomiting. He says his last BM and vomiting was yesterday. He says he has been having poor appetite and has not been eating or drinking enough at home. Denies fever, chills, chest pain or SOB. He was noted to be severely dehydrated and BP in the 70/50s. Hospital Course Hospital Course: LUIS PETERSON is a 62 year old male with a PMH of hypertension, COPD, BPH, seizure disorder (related to pituitary tumor), and history of pituitary tumor (diagnosed in 2011-undetectable on last MRI in 2016) who presented with vomiting and diarrhea and respiratory symptoms. He says he started developing nonproductive cough and congestion 4 days ago. This was later associated with 2-3 episodes of nonbloody, watery stools and few episodes on nonbilious, nonbloody vomiting. He says his last BM and vomiting was yesterday. He says he has been having poor appetite and has not been eating or drinking enough at home. Denies fever, chills, chest pain or SOB. He was noted to be dehydrated and BP in the 70/50s. He was given 2L of fluid boluses in the ER. He was continued on NS at 150 cc/hr. His creatinine dramatically improved in 48 hrs with IV fluids from a creatinine of 8 to 1.4. His lisinopril was switched to Coreg. Tele monitoring did show he had runs of multiple PVCs. He was asymptomatic. He says he had a sleep study done before but did not really know what the result was as he was lost to ff-up. He will be given outpatient ff-up with Dr. Julian for possible sleep study testing. He did develop some wheezing bilaterally the next day of admission and was t reated for mild COPD exacerbation. He was started on PO steroids and breathing treatments. He says he was on inhalers before but has not been using them. He will be given 4 more days of prednisone and was also prescribed salmeterol- fluticasone. Physical Exam Vital Signs: Temp Pulse Resp BP Pulse Ox 97.8 F 84 16 148/77 H 100 03/26/18 11:27 03/26/18 11:27 03/26/18 11:27 03/26/18 11:27 03/26/18 11:27 Intake & Output 03/25/18 03/26/18 03/27/18 06:59 06:59 06:59 Intake Total 3370 3205 Output Total 2800 3060 Balance 570 145 Weight 156 lb 4.924 oz 163 lb 2.273 oz General appearance: PRESENT: no acute distress, well-developed, well-nourished Head exam: PRESENT: atraumatic, normocephalic Eye exam: PRESENT: conjunctiva pink, EOMI, PERRLA. ABSENT: scleral icterus Ear exam: PRESENT: normal external ear exam Mouth exam: PRESENT: moist, tongue midline Neck exam: ABSENT: carotid bruit, JVD, lymphadenopathy, thyromegaly Respiratory exam: PRESENT: clear to auscultation carley. ABSENT: rales, rhonchi, wheezes Cardiovascular exam: PRESENT: RRR. ABSENT: diastolic murmur, rubs, systolic mu rmur Pulses: PRESENT: normal dorsalis pedis pul GI/Abdominal exam: PRESENT: normal bowel sounds, soft. ABSENT: distended, guarding, mass, organolmegaly, rebound, tenderness Rectal exam: PRESENT: deferred Extremities exam: PRESENT: full ROM. ABSENT: calf tenderness, clubbing, pedal edema Neurological exam: PRESENT: alert, awake, oriented to person, oriented to place, oriented to time, oriented to situation, CN II-XII grossly intact. ABSENT: motor sensory deficit Results Laboratory Results: 03/24/18 10:28 03/26/18 04:27 03/26/18 04:27 Sodium 145.1 H Potassium 5.1 H Chloride 117 H Carbon Dioxide 18 L Anion Gap 10 BUN 25 H Creatinine 1.45 H Est GFR ( Amer) > 60 Est GFR (Non-Af Amer) 49 L Glucose 151 H Calcium 8.1 L 03/24/18 14:22 Creatine Kinase 326 H Impressions: Head CT 03/24/18 10:10 IMPRESSION: Chronic sphenoid sinusitis on the right with mucoperiosteal thickening and dried secretions. Otherwise unremarkable CT brain EVIDENCE OF ACUTE STROKE: NO. Abdomen/Pelvis CT 03/24/18 12:39 IMPRESSION: No acute findings in the abdomen or pelvis on unenhanced CT. Chest X-Ray 03/25/18 10:47 IMPRESSION: NO ACUTE RADIOGRAPHIC FINDING IN THE CHEST. Qualifiers - * PATIENT BEING DISCHARGED WITH ANY OF THE FOLLOWING DIAGNOSIS: No
== END 2018-03-26 12:20 | disposition home or self-care (01) | DRG 683 ==
LOC: ER 09:42 → EH 14:56 → OBSVTOIN 14:57 → 4W 18:48
PROVIDERS: ADMIT Internal Medicine; ATTEND Internal Medicine
DX: N17.9 Acute kidney failure, unspecified (principal); J44.1 Chronic obstructive pulmonary disease with (acute) exacerbation; E86.0 Dehydration; I95.9 Hypotension, unspecified; R11.2 Nausea with vomiting, unspecified; R19.7 Diarrhea, unspecified; I10 Essential (primary) hypertension; N40.0 Benign prostatic hyperplasia without lower urinary tract symptoms; G40.909 Epilepsy, unspecified, not intractable, without status epilepticus; Z79.899 Other long term (current) drug therapy; F17.200 Nicotine dependence, unspecified, uncomplicated
CPT/HCPCS: 36415; 70450; 71045; 74176; 80048; 80053; 81001; 82550; 83735; 85025; 85610; 87804; 93005; 93010; 94640; 96361; 96374; 96375; 99285; J1652; J2270; J2405; J7030; J7040; J7512; J7620

== ENCOUNTER → 2018-04-11 | Outpatient (CLI) | payer MEDICARE, MEDICAID ==
[2018-04-11 10:16] LABS: ABSOLUTE EOSINOPHILS # (AUTO) 0.2 10^3/uL (0.0-0.6); ABSOLUTE LYMPHOCYTES (AUTO) 2.3 10^3/uL (0.5-4.7); ABSOLUTE MONOCYTES (AUTO) 0.7 10^3/uL (0.1-1.4); ABSOLUTE NEUT (AUTO) 4.9 10^3/uL (1.7-8.2); BASOPHILS % (AUTO) 0.5 % (0-2); EOSINOPHILS % (AUTO) 1.9 % (0-6); HEMATOCRIT 37.4 % (37.9-51.0); HEMOGLOBIN 12.6 g/dL (13.5-17.0); LYMPHOCYTES % (AUTO) 27.8 % (13-45); MEAN CORPUSCULAR HEMOGLOBIN 30.7 pg (27.0-33.4); MEAN CORPUSCULAR HGB CONC 33.7 g/dL (32.0-36.0); MEAN CORPUSCULAR VOLUME 91 fl (80-97); MONOCYTES % (AUTO) 9.1 % (3-13); PLATELET COUNT 181 10^3/uL (150-450); RED CELL DISTRIBUTION WIDTH 14.8 % (11.5-14.0); SEGMENTED NEUTROPHILS % (AUTO) 60.7 % (42-78); TOTAL CELLS COUNTED % (AUTO) 100 %; WHITE BLOOD COUNT 8.1 10^3/uL (4.0-10.5)
[2018-04-11 10:46] LABS: ANION GAP 7 (5-19); BLOOD UREA NITROGEN 18 mg/dL (7-20); CALCIUM 9.5 mg/dL (8.4-10.2); CARBON DIOXIDE 30 mmol/L (22-30); CHLORIDE 104 mmol/L (98-107); GLUCOSE 139 mg/dL (75-110); POTASSIUM 4.8 mmol/L (3.6-5.0); SODIUM 140.8 mmol/L (137-145)
[2018-04-13 10:08] LABS: ANION GAP 8 (5-19); BLOOD UREA NITROGEN 19 mg/dL (7-20); CALCIUM 9.5 mg/dL (8.4-10.2); CARBON DIOXIDE 28 mmol/L (22-30); CHLORIDE 105 mmol/L (98-107); GLUCOSE 88 mg/dL (75-110); POTASSIUM 4.5 mmol/L (3.6-5.0); SODIUM 140.5 mmol/L (137-145)
== END ==
LOC: OD 09:35
PROVIDERS: ATTEND Family Medicine Geriatric Medicine
DX: N17.9 Acute kidney failure, unspecified (principal); I10 Essential (primary) hypertension; R73.9 Hyperglycemia, unspecified; Z79.899 Other long term (current) drug therapy
CPT/HCPCS: 36415; 80048; 83036; 85025

== ENCOUNTER → 2018-04-16 | Outpatient (CLI) | payer MEDICARE, MEDICAID | LOC: OD 09:05 | PROVIDERS: ATTEND Family Medicine Geriatric Medicine | DX: R73.9 Hyperglycemia, unspecified (principal) | CPT/HCPCS: 36415; 82947; 82950 ==

== ENCOUNTER → 2018-10-30 | Outpatient (CLI) | payer MEDICARE, MEDICAID ==
[2018-10-30 12:10] LABS: ABSOLUTE EOSINOPHILS # (AUTO) 0.1 10^3/uL (0.0-0.6); ABSOLUTE LYMPHOCYTES (AUTO) 2.4 10^3/uL (0.5-4.7); ABSOLUTE MONOCYTES (AUTO) 0.4 10^3/uL (0.1-1.4); ABSOLUTE NEUT (AUTO) 2.7 10^3/uL (1.7-8.2); BASOPHILS % (AUTO) 0.6 % (0-2); EOSINOPHILS % (AUTO) 2.2 % (0-6); HEMATOCRIT 34.8 % (37.9-51.0); HEMOGLOBIN 11.8 g/dL (13.5-17.0); LYMPHOCYTES % (AUTO) 42.2 % (13-45); MEAN CORPUSCULAR VOLUME 91 fl (80-97); MONOCYTES % (AUTO) 7.4 % (3-13); PLATELET COUNT 183 10^3/uL (150-450); RED BLOOD COUNT 3.81 10^6/uL (4.35-5.55); RED CELL DISTRIBUTION WIDTH 14.1 % (11.5-14.0); SEGMENTED NEUTROPHILS % (AUTO) 47.6 % (42-78); TOTAL CELLS COUNTED % (AUTO) 100 %; WHITE BLOOD COUNT 5.6 10^3/uL (4.0-10.5)
[2018-10-30 12:35] LABS: ANION GAP 7 (5-19); BLOOD UREA NITROGEN 13 mg/dL (7-20); CALCIUM 9.4 mg/dL (8.4-10.2); CARBON DIOXIDE 27 mmol/L (22-30); CHLORIDE 106 mmol/L (98-107); CHOLESTEROL 156.19 mg/dL (0-200); GLUCOSE 106 mg/dL (75-110); POTASSIUM 4.4 mmol/L (3.6-5.0); TRIGLYCERIDES 183 mg/dL (<150)
[2018-10-30 12:46] LABS: DIRECT LDL 101 mg/dL (<100)
[2018-10-30 12:53] LABS: VLDL CHOLESTEROL 36.6 mg/dL (10-31)
== END ==
LOC: OD 11:24
PROVIDERS: ATTEND Family Medicine Geriatric Medicine
DX: E78.5 Hyperlipidemia, unspecified (principal); I10 Essential (primary) hypertension; R73.01 Impaired fasting glucose; Z79.899 Other long term (current) drug therapy
CPT/HCPCS: 36415; 80048; 80061; 83036; 84460; 85025

== ENCOUNTER → 2019-02-21 | Outpatient (CLI) | payer MEDICARE, MEDICAID ==
[2019-02-21 08:12] LABS: ABSOLUTE EOSINOPHILS # (AUTO) 0.1 10^3/uL (0.0-0.6); ABSOLUTE LYMPHOCYTES (AUTO) 2.7 10^3/uL (0.5-4.7); ABSOLUTE MONOCYTES (AUTO) 0.5 10^3/uL (0.1-1.4); ABSOLUTE NEUT (AUTO) 3.1 10^3/uL (1.7-8.2); BASOPHILS % (AUTO) 0.6 % (0-2); EOSINOPHILS % (AUTO) 2.1 % (0-6); HEMATOCRIT 40.6 % (37.9-51.0); HEMOGLOBIN 13.9 g/dL (13.5-17.0); LYMPHOCYTES % (AUTO) 42.1 % (13-45); MEAN CORPUSCULAR HEMOGLOBIN 31.2 pg (27.0-33.4); MEAN CORPUSCULAR HGB CONC 34.3 g/dL (32.0-36.0); MEAN CORPUSCULAR VOLUME 91 fl (80-97); PLATELET COUNT 202 10^3/uL (150-450); RED BLOOD COUNT 4.47 10^6/uL (4.35-5.55); RED CELL DISTRIBUTION WIDTH 14.7 % (11.5-14.0); SEGMENTED NEUTROPHILS % (AUTO) 47.2 % (42-78); TOTAL CELLS COUNTED % (AUTO) 100 %; WHITE BLOOD COUNT 6.5 10^3/uL (4.0-10.5)
[2019-02-21 08:37] LABS: CHOLESTEROL 189.82 mg/dL (0-200); TRIGLYCERIDES 151 mg/dL (<150)
[2019-02-21 08:48] LABS: DIRECT LDL 117 mg/dL (<100)
[2019-02-21 08:58] LABS: VLDL CHOLESTEROL 30.2 mg/dL (10-31)
== END ==
LOC: OD 07:18
PROVIDERS: ATTEND Family Medicine Geriatric Medicine
DX: I10 Essential (primary) hypertension (principal); E78.5 Hyperlipidemia, unspecified; R73.01 Impaired fasting glucose; Z79.899 Other long term (current) drug therapy
CPT/HCPCS: 36415; 80061; 83036; 84460; 85025

== ENCOUNTER 2019-03-03 00:24 | Emergency (ER) | payer MEDICARE, MEDICAID ==
[2019-03-03 00:31] VITALS: BP 149/72
[2019-03-03 01:12] LABS: ABSOLUTE BASOPHILS # (AUTO) 0.1 10^3/uL (0.0-0.2); ABSOLUTE EOSINOPHILS # (AUTO) 0.1 10^3/uL (0.0-0.6); ABSOLUTE LYMPHOCYTES (AUTO) 2.6 10^3/uL (0.5-4.7); ABSOLUTE MONOCYTES (AUTO) 0.7 10^3/uL (0.1-1.4); ABSOLUTE NEUT (AUTO) 6.9 10^3/uL (1.7-8.2); BASOPHILS % (AUTO) 0.6 % (0-2); EOSINOPHILS % (AUTO) 1.1 % (0-6); HEMATOCRIT 41.8 % (37.9-51.0); HEMOGLOBIN 14.2 g/dL (13.5-17.0); LYMPHOCYTES % (AUTO) 24.8 % (13-45); MEAN CORPUSCULAR HEMOGLOBIN 31.1 pg (27.0-33.4); MEAN CORPUSCULAR HGB CONC 33.9 g/dL (32.0-36.0); MEAN CORPUSCULAR VOLUME 92 fl (80-97); MONOCYTES % (AUTO) 7.1 % (3-13); PLATELET COUNT 209 10^3/uL (150-450); RED BLOOD COUNT 4.57 10^6/uL (4.35-5.55); RED CELL DISTRIBUTION WIDTH 14.8 % (11.5-14.0); SEGMENTED NEUTROPHILS % (AUTO) 66.4 % (42-78); TOTAL CELLS COUNTED % (AUTO) 100 %; WHITE BLOOD COUNT 10.4 10^3/uL (4.0-10.5)
[2019-03-03 02:11] LABS: ALBUMIN 4.4 g/dL (3.5-5.0); ALKALINE PHOSPHATASE 81 U/L (38-126); ANION GAP 7 (5-19); ASPARTATE AMINO TRANSFERASE 35 U/L (17-59); BILIRUBIN,TOTAL 0.5 mg/dL (0.2-1.3); BLOOD UREA NITROGEN 15 mg/dL (7-20); CALCIUM 9.8 mg/dL (8.4-10.2); CARBON DIOXIDE 30 mmol/L (22-30); CHLORIDE 103 mmol/L (98-107); GLUCOSE 115 mg/dL (75-110); POTASSIUM 4.8 mmol/L (3.6-5.0); TOTAL PROTEIN 8.2 g/dL (6.3-8.2)
== END 2019-03-03 01:58 | disposition left against medical advice (07) ==
LOC: ER 00:24
DX: Z53.21 Procedure and treatment not carried out due to patient leaving prior to being seen by health care provider (principal)
CPT/HCPCS: 36415; 80053; 83690; 85025

== ENCOUNTER 2019-03-03 08:48 | Emergency (ER) | payer MEDICARE, MEDICAID ==
--- NOTE | 2019-03-03 09:42 | ER Document Report ---
ED Medical Screen (RME) - General Chief Complaint: Abdominal Pain Stated Complaint: ABDOMINAL PAIN Time Seen by Provider: 03/03/19 09:28 Primary Care Provider: MARCUS CLARK MD [Primary Care Provider] - Follow up as needed Notes: Patient is a 63-year-old male who presents to the emergency department with a chief complaint of abdominal pain. Patient reports yesterday morning waking up with right lower quadrant pain. Patient reports this is worse when he attempts to lay down and is worse with breathing. Patient reports he did have 3 bowel movements yesterday with a small amount of diarrhea. Patient denies blood in his stool. Patient denies nausea, vomiting or diarrhea. Patient reports he feels very bloated. Patient denies abdominal surgical history. Patient denies fever. TRAVEL OUTSIDE OF THE [place] IN LAST 30 DAYS: No - Related Data Allergies/Adverse Reactions: No Known Allergies Allergy (Verified 03/24/18 09:43) Home Medications: Atorvastatin, Lisinopril, Montelukast, Carvedilol, Tamsulosin Past Medical History - Past Medical History Cardiac Medical History: Reports: Hx Hypertension Neurological Medical History: Reports: Hx Migraine Renal/ Medical History: Denies: Hx Peritoneal Dialysis - Immunizations Hx Diphtheria, Pertussis, Tetanus Vaccination: No Physical Exam - Vital signs Vitals: Temp Pulse Resp BP Pulse Ox 97.5 F 80 16 138/79 H 99 03/03/19 09:00 03/03/19 09:00 03/03/19 09:00 03/03/19 09:00 03/03/19 09:00 - Abdominal Inspection: Normal Distension: No distension Bowel sounds: Normal Tenderness: Tender - Patient has significant right lower quadrant tenderness with palpation. Course - Re-evaluation Re-evalutation: 03/03/19 09:42 Patient will require a thorough abdominal examination the back. Patient is significantly tender in his right lower quadrant in triage. I have greeted and performed a rapid initial assessment of this patient. A comprehensive ED assessment and evaluation of the patient, analysis of test results and completion of the medical decision making process will be conducted by additional ED providers. - Vital Signs Vital signs: Temp Pulse Resp BP Pulse Ox 97.5 F 80 16 138/79 H 99 03/03/19 09:00 03/03/19 09:00 03/03/19 09:00 03/03/19 09:00 03/03/19 09:00 Doctor's Discharge - Discharge Referrals: MARCUS CLARK MD [Primary Care Provider] - Follow up as needed
[2019-03-03 10:16] LABS: APPEARANCE,URINE CLEAR; BILIRUBIN,URINE NEGATIVE (NEGATIVE); COLOR,URINE YELLOW; GLUCOSE, URINE NEGATIVE (NEGATIVE); KETONES,URINE NEGATIVE (NEGATIVE); LEUKOCYTE ESTERASE,URINE SMALL (NEGATIVE); NITRITE,URINE NEGATIVE (NEGATIVE); PROTEIN,URINE NEGATIVE (NEGATIVE); URINE SPECIFIC GRAVITY 1.012; UROBILINOGEN,URINE NEGATIVE mg/dL (<2.0)
[2019-03-03] MEDS ORDERED: NORMAL SALINE 1000 ML 1,000 ML IV ONE (10:18)
--- NOTE | 2019-03-03 10:21 | ER Document Report ---
ED GI/ - General Chief Complaint: Abdominal Pain Stated Complaint: ABDOMINAL PAIN Time Seen by Provider: 03/03/19 09:28 Primary Care Provider: MARCUS CLARK MD [Primary Care Provider] - Follow up as needed Notes: 63-year-old male presents to the emergency department with a complaint of abdominal pain, right lower quadrant. He states he came to the emergency department last night however was unable to stay due to an extended wait. Pain has worsened this morning he returns for further evaluation. TRAVEL OUTSIDE OF THE [place] IN LAST 30 DAYS: No - Related Data Allergies/Adverse Reactions: No Known Allergies Allergy (Verified 03/24/18 09:43) Home Medications: Atorvastatin, Lisinopril, Montelukast, Carvedilol, Tamsulosin Past Medical History - Social History Smoking Status: Unknown if Ever Smoked Family History: Hypertension, Other Patient has suicidal ideation: No Patient has homicidal ideation: No - Past Medical History Cardiac Medical History: Reports: Hx Hypertension Neurological Medical History: Reports: Hx Migraine Renal/ Medical History: Denies: Hx Peritoneal Dialysis - Immunizations Hx Diphtheria, Pertussis, Tetanus Vaccination: No Review of Systems - Review of Systems Notes: Constitutional: Negative for fever. HENT: Negative for sore throat. Eyes: Negative for visual changes. Cardiovascular: Negative for chest pain. Respiratory: Negative for shortness of breath. Gastrointestinal: + Abdominal pain, no nausea, no vomiting Genitourinary: Negative for dysuria. Musculoskeletal: Negative for back pain. Skin: Negative for rash. Neurological: Negative for headaches, weakness or numbness. 10 point ROS negative except as marked above and in HPI. Physical Exam - Vital signs Vitals: Temp Pulse Resp BP Pulse Ox 97.5 F 80 16 138/79 H 99 03/03/19 09:00 03/03/19 09:00 03/03/19 09:00 03/03/19 09:00 03/03/19 09:00 - Notes Notes: PHYSICAL EXAMINATION: Physical Exam: General: Well-nourished well-developed 63-year-old man in no acute distress HEENT: NC/AT, pupils equal round and reactive to light, MM moist,nares clear, Neck: supple, no adenopathy, no masses. Lungs: clear, no wheezing, no rales no rhonchi CVS: Regular rate and rhythm no murmur gallop or rub Abdomen: Soft, active, tenderness in the right lower quadrant, positive guarding, positive rebound, no masses, no hepatosplenomegaly Ext: No edema clubbing or cyanosis. Neuro: Alert and responsive, moving all 4 extremities on command, cranial nerves intact. Skin: Intact no open lesions, no rash PSYCH: Normal mood, normal affect. Course - Re-evaluation Re-evalutation: 03/03/19 14:47 CT scan of the abdomen and pelvis with IV contrast reveals a right sided diverticulitis involving the cecum, the appendix was noted and noted to be normal. I discussed this finding with the patient and explained to him that he will need antibiotics and follow-up with his primary doctor. He states he un derstands and is agreeable with this plan. - Vital Signs Vital signs: Temp Pulse Resp BP Pulse Ox 98.2 F 72 16 153/82 H 100 03/03/19 13:31 03/03/19 13:31 03/03/19 13:31 03/03/19 13:31 03/03/19 13:31 - Laboratory Result Diagrams: 03/03/19 10:33 03/03/19 10:33 Laboratory results interpreted by me: 03/03/19 03/03/19 09:45 10:33 RDW 14.8 H Urine Blood MODERATE H Ur Leukocyte Esterase SMALL H 03/03/19 14:48 I have reviewed laboratory data and used this information for the treatment decisions regarding the patient. - Diagnostic Test Radiology reviewed: Image reviewed, Reports reviewed - CT of abdomen and pelvis IV contrast: Diverticulitis cecum, appendix appears to be normal. Discharge - Discharge Clinical Impression: Diverticulitis, Right lower quadrant abdominal pain Condition: Good Disposition: HOME, SELF-CARE Instructions: Diverticulitis ([facility]) Additional Instructions: Diverticulitis You have been diagnosed as having diverticulitis. This is an inflammation of a small pouch attached to the colon, called a diverticulum. Many of these small pouches can form on the colon as you get older. They are often caused by constipation. When inflamed or infected, symptoms arise -- usually abdominal pain, constipation or diarrhea, fever, and blood in the stool. Severe diverticulitis may require hospitalization. More mild cases are usually treated with antibiotics and clear liquid diet. As you improve, a diet low in residue (one which forms little stool) is prescribed. When you are better, you should eat a high-fiber diet. Stool softeners (like Metamucil) are usually recommended. Call the doctor or go to the hospital if there is increasing pain, vomiting, high fever, large amounts of blood passed, or if bowel movements cease. Prescriptions: Amox Tr/Potassium Clavulanate [Augmentin 875-125 Tablet] 1 tab PO BID 10 Days tablet Referrals: MARCUS CLARK MD [Primary Care Provider] - Follow up as needed
[2019-03-03 10:55] LABS: ABSOLUTE EOSINOPHILS # (AUTO) 0.1 10^3/uL (0.0-0.6); ABSOLUTE LYMPHOCYTES (AUTO) 2.3 10^3/uL (0.5-4.7); ABSOLUTE MONOCYTES (AUTO) 0.8 10^3/uL (0.1-1.4); ABSOLUTE NEUT (AUTO) 6.3 10^3/uL (1.7-8.2); BASOPHILS % (AUTO) 0.4 % (0-2); EOSINOPHILS % (AUTO) 0.7 % (0-6); HEMATOCRIT 39.7 % (37.9-51.0); HEMOGLOBIN 13.6 g/dL (13.5-17.0); LYMPHOCYTES % (AUTO) 24.5 % (13-45); MEAN CORPUSCULAR HEMOGLOBIN 31.2 pg (27.0-33.4); MEAN CORPUSCULAR HGB CONC 34.2 g/dL (32.0-36.0); MEAN CORPUSCULAR VOLUME 91 fl (80-97); MONOCYTES % (AUTO) 8.5 % (3-13); PLATELET COUNT 191 10^3/uL (150-450); RED BLOOD COUNT 4.37 10^6/uL (4.35-5.55); RED CELL DISTRIBUTION WIDTH 14.8 % (11.5-14.0); SEGMENTED NEUTROPHILS % (AUTO) 65.9 % (42-78); TOTAL CELLS COUNTED % (AUTO) 100 %; WHITE BLOOD COUNT 9.5 10^3/uL (4.0-10.5)
[2019-03-03 11:00] LABS: INTERNATIONAL RATION (INR) 1.11; PROTHROMBIN TIME 14.4 SEC (11.4-15.4)
--- NOTE | 2019-03-03 11:03 | RADIOLOGY REPORT (SQ) ---
EXAM DESCRIPTION: CT ABD/PELVIS WITH IV ONLY COMPLETED DATE/TIME: 03/03/2019 10:45 am REASON FOR STUDY: RLQ abdominal pain COMPARISON: None. TECHNIQUE: CT scan of the abdomen and pelvis performed using helical scanning technique with dynamic intravenous contrast injection. No oral contrast. Images reviewed with lung, soft tissue, and bone windows. Reconstructed coronal and sagittal MPR images reviewed. Delayed images for evaluation of the urinary system also acquired. All images stored on PACS. All CT scanners at this facility use dose modulation, iterative reconstruction, and/or weight based d osing when appropriate to reduce radiation dose to as low as reasonably achievable (ALARA). [facility]: Dose Right [facility]: CareDose [facility]: Dose Right [facility]: Teradose 4D [facility]: [place] CONTRAST TYPE AND DOSE: contrast/concentration: Isovue 350.00 mg/ml; Total Contrast Delivered: 89.0 ml; Total Saline Delivered: 65.0 ml RENAL FUNCTION: Creatinine 1.4 RADIATION DOSE: CT Rad equipment meets quality standard of care and radiation dose reduction techniq ues were employed. CTDIvol: 5.2 - 7.0 mGy. DLP: 640 mGy-cm.. LIMITATIONS: None. FINDINGS: There is stranding in the right lower quadrant fat, along the pericolic gutter and. Appen diceal and pericecal soft tissues. Along the dorsum of the cecum, there are 2 diverticuli with surro unding inflammatory change best shown on coronal image 27-30 and sagittal image 24 through 27. The adjacent appendix is normal in caliber with air in the lumen. These findings likely represent right-sided colonic diverticulitis. Findings discussed with Dr. Tobi john. Patient drank oral contrast. Remainder of the gastrointestinal tract is otherwise unremarkable. No bowel obstruction. No free intraperitoneal air. Trace cul-de-sac fluid axial image 70. LOWER CHEST: No significant findings. No nodules or infiltrates. LIVER: Normal size. No masses. No dilated ducts. SPLEEN: Normal size. No focal lesions. PANCREAS: No masses. No significant calcifications. No adjacent inflammation or peripancreatic fluid collections. Pancreatic duct not dilated. GALLBLADDER: No identified stones by CT criteria. No inflammatory changes to suggest cholecystitis. ADRENAL GLANDS: No significant masses or asymmetry. RIGHT KIDNEY AND URETER: No solid masses. No significant calcifications. No hydronephrosis or hyd roureter. LEFT KIDNEY AND URETER: No solid masses. No significant calcifications. No hydronephrosis or hydr oureter. AORTA AND VESSELS: No aneurysm. No dissection. Renal arteries, SMA, celiac without stenosis. RETROPERITONEUM: No retroperitoneal adenopathy, hemorrhage or masses. BOWEL AND PERITONEAL CAVITY: As above APPENDIX: As above PELVIS: Minimal cul-de-sac free fluid. No pelvic masses or adenopathy. Urinary bladder unremarkable . ABDOMINAL WALL: No masses. No hernias. BONES: No significant or acute findings. OTHER: No other significant finding. IMPRESSION: Pericecal inflammation with inflamed diverticuli along the dorsum of the cecum worrisome for diverticulitis. No abscess. No gross wall thickening along the appendix. Trace free pelvic fl uid TECHNICAL DOCUMENTATION: JOB ID: [id number] Quality ID # [id number]: Final reports with documentation of one or more dose reduction techniques (e.g., Au tomated exposure control, adjustment of the mA and/or kV according to patient size, use of iterative reconstruction technique) 2010 [employer]- All Rights Reserved Reading location - IP/workstation name: [email or web address]
[2019-03-03 11:11] LABS: ALBUMIN 3.7 g/dL (3.5-5.0); ALKALINE PHOSPHATASE 73 U/L (38-126); ANION GAP 8 (5-19); ASPARTATE AMINO TRANSFERASE 28 U/L (17-59); BILIRUBIN,DIRECT 0.2 mg/dL (0.0-0.4); BILIRUBIN,TOTAL 0.7 mg/dL (0.2-1.3); BLOOD UREA NITROGEN 13 mg/dL (7-20); CALCIUM 8.4 mg/dL (8.4-10.2); CARBON DIOXIDE 25 mmol/L (22-30); CHLORIDE 106 mmol/L (98-107); GLUCOSE 94 mg/dL (75-110); TOTAL PROTEIN 7.5 g/dL (6.3-8.2)
[2019-03-03 11:17] LABS: POTASSIUM 3.8 mmol/L (3.6-5.0)
[2019-03-03] MEDS ORDERED: CIPROFLOXACIN 400 MG/D5W RTU 400 MG/200 ML RTUPB IV ONE (12:39)
[2019-03-03] MEDS ORDERED: METRONIDAZOLE 500 MG/NS RTU 500 MG/100 ML RTUPB IV ONE (12:40)
[2019-03-03 14:49] VITALS: BP 152/80
== END 2019-03-03 14:57 | disposition home or self-care (01) ==
LOC: ER 08:48
DX: K57.32 Diverticulitis of large intestine without perforation or abscess without bleeding (principal); R10.31 Right lower quadrant pain; R10.813 Right lower quadrant abdominal tenderness; I10 Essential (primary) hypertension; Z79.899 Other long term (current) drug therapy
CPT/HCPCS: 99284; 96365; 36415; 85610; 85730; 87070; 81001; 74177; J0744

== ENCOUNTER → 2019-04-03 | Outpatient (CLI) | payer MEDICARE, MEDICAID ==
[2019-04-03 09:46] LABS: CHOLESTEROL 159.36 mg/dL (0-200); TRIGLYCERIDES 166 mg/dL (<150)
[2019-04-03 09:57] LABS: DIRECT LDL 92 mg/dL (<100)
[2019-04-03 09:58] LABS: VLDL CHOLESTEROL 33.2 mg/dL (10-31)
== END ==
LOC: OD 08:43
PROVIDERS: ATTEND Family Medicine Geriatric Medicine
DX: E78.5 Hyperlipidemia, unspecified (principal); Z79.899 Other long term (current) drug therapy
CPT/HCPCS: 36415; 80061; 84460

== ENCOUNTER → 2019-07-15 | Outpatient (CLI) | payer MEDICARE, MEDICAID ==
[2019-07-15 08:58] LABS: ABSOLUTE EOSINOPHILS # (AUTO) 0.1 10^3/uL (0.0-0.6); ABSOLUTE LYMPHOCYTES (AUTO) 2.4 10^3/uL (0.5-4.7); ABSOLUTE MONOCYTES (AUTO) 0.4 10^3/uL (0.1-1.4); ABSOLUTE NEUT (AUTO) 2.8 10^3/uL (1.7-8.2); BASOPHILS % (AUTO) 0.4 % (0-2); EOSINOPHILS % (AUTO) 2.2 % (0-6); HEMATOCRIT 39.2 % (37.9-51.0); HEMOGLOBIN 13.3 g/dL (13.5-17.0); LYMPHOCYTES % (AUTO) 41.7 % (13-45); MEAN CORPUSCULAR HEMOGLOBIN 31.2 pg (27.0-33.4); MEAN CORPUSCULAR HGB CONC 33.9 g/dL (32.0-36.0); MEAN CORPUSCULAR VOLUME 92 fl (80-97); MONOCYTES % (AUTO) 7.7 % (3-13); PLATELET COUNT 194 10^3/uL (150-450); RED BLOOD COUNT 4.26 10^6/uL (4.35-5.55); RED CELL DISTRIBUTION WIDTH 14.6 % (11.5-14.0); TOTAL CELLS COUNTED % (AUTO) 100 %; WHITE BLOOD COUNT 5.8 10^3/uL (4.0-10.5)
--- NOTE | 2019-07-15 09:14 | RADIOLOGY REPORT (SQ) ---
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 NUMBER OF VIEWS: Three views. TECHNIQUE: Internal rotation, external rotation, and Y view images acquired of the left shoulder. LIMITATIONS: None. FINDINGS: MINERALIZATION: Normal. BONES: No acute fracture. No worrisome bone lesions. JOINTS: No dislocation. VISUALIZED LUNGS AND RIBS: No pneumothorax. No rib fracture. SOFT TISSUES: No radiopaque foreign body. OTHER: No other significant finding. IMPRESSION: 1. No acute osseous findings. TECHNICAL DOCUMENTATION: JOB ID: [id number] 2010 [employer]- All Rights Reserved Reading location - IP/workstation name: [email or web address]
[2019-07-15 09:15] LABS: BLOOD UREA NITROGEN 17 mg/dL (7-20); CALCIUM 9.5 mg/dL (8.4-10.2); CARBON DIOXIDE 27 mmol/L (22-30); CHLORIDE 106 mmol/L (98-107); CHOLESTEROL 198.87 mg/dL (0-200); GLUCOSE 118 mg/dL (75-110); POTASSIUM 4.5 mmol/L (3.6-5.0); TRIGLYCERIDES 125 mg/dL (<150); URIC ACID 7.1 mg/dL (3.5-8.5)
[2019-07-15 09:25] LABS: DIRECT LDL 131 mg/dL (<100)
[2019-07-15 09:32] LABS: ANION GAP 5 (5-19)
== END ==
LOC: OD 07:04
PROVIDERS: ATTEND Family Medicine Geriatric Medicine
DX: M25.512 Pain in left shoulder (principal); D57.40 Sickle-cell thalassemia without crisis; I10 Essential (primary) hypertension; R73.01 Impaired fasting glucose; E78.2 Mixed hyperlipidemia; C61 Malignant neoplasm of prostate
CPT/HCPCS: 36415; 80048; 80061; 83036; 84460; 84550; 85025

== ENCOUNTER → 2019-09-13 | Outpatient (CLI) | payer MEDICARE, MEDICAID ==
[2019-09-13 09:23] LABS: BLOOD UREA NITROGEN 19 mg/dL (7-20); CALCIUM 8.6 mg/dL (8.4-10.2); CHOLESTEROL 170.48 mg/dL (0-200); GLUCOSE 110 mg/dL (75-110); POTASSIUM 4.4 mmol/L (3.6-5.0); TRIGLYCERIDES 184 mg/dL (<150)
[2019-09-13 09:28] LABS: CARBON DIOXIDE 26 mmol/L (22-30); CHLORIDE 109 mmol/L (98-107)
[2019-09-13 09:29] LABS: VLDL CHOLESTEROL 36.8 mg/dL (10-31)
[2019-09-13 09:34] LABS: DIRECT LDL 112 mg/dL (<100)
[2019-09-13 10:25] LABS: ANION GAP 3 (5-19)
== END ==
LOC: OD 07:28
PROVIDERS: ATTEND Family Medicine Geriatric Medicine
DX: E78.5 Hyperlipidemia, unspecified (principal); C61 Malignant neoplasm of prostate; J44.9 Chronic obstructive pulmonary disease, unspecified; J30.9 Allergic rhinitis, unspecified; N40.1 Benign prostatic hyperplasia with lower urinary tract symptoms; D57.40 Sickle-cell thalassemia without crisis; G40.909 Epilepsy, unspecified, not intractable, without status epilepticus; G43.009 Migraine without aura, not intractable, without status migrainosus; R73.01 Impaired fasting glucose; M1A.0120 Idiopathic chronic gout, left shoulder, without tophus (tophi); F17.200 Nicotine dependence, unspecified, uncomplicated; Z68.25 Body mass index [BMI] 25.0-25.9, adult; Z29.9 Encounter for prophylactic measures, unspecified
CPT/HCPCS: 36415; 80048; 80061; 83036; 84153; 84460; 84550

== ENCOUNTER → 2019-10-29 | Outpatient (CLI) | payer MEDICARE, MEDICAID ==
[2019-10-29 09:28] LABS: ANION GAP 7 (5-19); BLOOD UREA NITROGEN 14 mg/dL (7-20); CALCIUM 9.3 mg/dL (8.4-10.2); CARBON DIOXIDE 28 mmol/L (22-30); CHLORIDE 105 mmol/L (98-107); CHOLESTEROL 182.31 mg/dL (0-200); GLUCOSE 130 mg/dL (75-110); POTASSIUM 4.5 mmol/L (3.6-5.0); TRIGLYCERIDES 132 mg/dL (<150); URIC ACID 6.7 mg/dL (3.5-8.5)
[2019-10-29 09:39] LABS: DIRECT LDL 113 mg/dL (<100)
== END ==
LOC: OD 07:57
PROVIDERS: ATTEND Family Medicine Geriatric Medicine
DX: M10.9 Gout, unspecified (principal); E78.5 Hyperlipidemia, unspecified; R73.01 Impaired fasting glucose; N40.1 Benign prostatic hyperplasia with lower urinary tract symptoms; Z79.899 Other long term (current) drug therapy
CPT/HCPCS: 36415; 80048; 80061; 83036; 84153; 84460; 84550

== ENCOUNTER → 2020-03-02 | Outpatient (CLI) | payer MEDICARE, MEDICAID ==
--- NOTE | 2020-03-02 09:33 | RADIOLOGY REPORT (SQ) ---
EXAM DESCRIPTION: FOOT LEFT COMPLETE IMAGES COMPLETED DATE/TIME: 03/02/2020 8:57 am REASON FOR STUDY: L FOOT PAIN COMPARISON: None. NUMBER OF VIEWS: Three views left foot. LIMITATIONS: None. FINDINGS: Osteopenic. Hallux valgus with degenerative changes in the great toe MP joint. No fractu re or worrisome bone lesion. Soft tissues within normal limits. OTHER: No other significant finding. IMPRESSION: No acute radiographic abnormality. Chronic appearing changes as above. TECHNICAL DOCUMENTATION: JOB ID: [id number] Reading location - IP/workstation name: [email or web address]
[2020-03-02 09:50] LABS: ANION GAP 10 (5-19); BLOOD UREA NITROGEN 12 mg/dL (7-20); CALCIUM 9.5 mg/dL (8.4-10.2); CARBON DIOXIDE 26 mmol/L (22-30); CHLORIDE 105 mmol/L (98-107); GLUCOSE 116 mg/dL (75-110); POTASSIUM 4.5 mmol/L (3.6-5.0); URIC ACID 6.5 mg/dL (3.5-8.5)
== END ==
LOC: OD 08:26
PROVIDERS: ATTEND Family Medicine Geriatric Medicine
DX: M10.9 Gout, unspecified (principal); M79.672 Pain in left foot; Z79.899 Other long term (current) drug therapy
CPT/HCPCS: 36415; 80048; 84550